=== PATIENT | male | born 1965 | race Caucasian/White ===

== ENCOUNTER 2025-10-31 15:06 | Outpatient (CLI) | payer OTHER, SELFPAY ==
--- NOTE | 2025-10-31 15:12 | XR_ITS ---
WS: [id number] KUB, AP view, 10/31/2025 Clinical Data: left flank pain, hx of kidney stones Comparison: None. Findings: No abnormal intraabdominal masses or calcifications are seen. There is no dilatated small bowel or evidence of obstruction. There is air in the stomach, small bowel and colon. There is fecal material in the ascending colon. 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 There are phleboliths in the true pelvis. XR/XR KUB [id number] Impression: Negative for renal calculi.
== END 2025-10-31 15:07 | disposition home or self-care (01) ==
LOC: RAD 15:09
PROVIDERS: PCP Family Medicine; Visit Provider Family Medicine
DX: R10.A2 Flank pain, left side (principal); Z87.442 Personal history of urinary calculi
CPT/HCPCS: 74018; 80053; 80061; 82306; 84443; 85025; G0103